=== PATIENT | male | born 1950 | race Caucasian/White ===

== ENCOUNTER 2017-05-27 16:14 | Emergency (ER) | payer OTHER, MEDICARE ==
--- NOTE | 2017-05-27 17:02 | EDM.PDOC ---
ED HPI GENERAL MEDICAL PROBLEM - General Chief Complaint: Lower Extremity Injury/Pain Stated Complaint: R HIP COMPLAINT Time Seen by Provider: 05/27/17 16:37 Source of Information: Reports: Patient History Limitations: Reports: No Limitations - History of Present Illness INITIAL COMMENTS - FREE TEXT/NARRATIVE: Patient is a 66-year-old male who presents to the ED complaining of right SI joint/right hip pain, and knee pain. Patient's underwent right hip replacement this past July by Dr. Perez orthopedic surgeon in [place]. States after surgery underwent physical therapy for 3 months. States he had pain to the right SI joint, right hip, and knee post surgery that improved with physical therapy. States over the past 3 months pain has slowly increased. He has been evaluated by Dr. Velázquez Orthopedic surgeon at [facility] here in [place] on 2 separate occasions. First occasion was approx 2 months ago when his tramadol was discontinued. He had been taking tramadol for quite some time post surgery. In addition he went back to physical therapy to which he states symptoms actually worsened. He was reevaluated by Dr. Velázquez one month ago with x-rays obtained with no concerning findings. Physical therapy believes that her something additional wrong. Dr. Velázquez has not mentioned this to the patient. Patient does have a follow-up appointment with Dr. Perez June 11. Patient states pain is worsened with palpation and movement. Patient does admit to sitting in his recliner quite a bit during the day. States he sleeps in this as well. When asking about his activity level he says he gets up and down and walks around his residence. Does not sound like patient exercises at all. He's had no recent fall. He has no additional complaints. Patient has been utilizing hydrocodone 5-325 intermittently for pain. States the hydrocodone came from his son who recently had hand surgery. States he has none left. Right Hip Pain Score (Numeric/FACES): 8 - Related Data Allergies Allergy/AdvReac Type Severity Reaction Status Date / Time No Known Allergies Allergy Verified 11/30/13 07:20 Home Meds: Home Meds Acetaminophen/HYDROcodone [Proctor 325-5 MG] 1 tab PO Q4HR PRN 05/27/17 [History] Diclofenac Sodium 2 gm TOP BID 05/27/17 [History] Furosemide 20 mg PO DAILY 05/27/17 [History] Losartan [Cozaar] 100 mg PO DAILY 05/27/17 [History] Omeprazole 20 mg PO DAILY PRN 05/27/17 [History] Prednisone [IMW: predniSONE] 40 mg PO WITHBREAKFAST #10 tab 05/27/17 [Rx] amLODIPine [Norvasc] 10 mg PO DAILY 05/27/17 [History] hydrOXYzine HCl [Atarax] 25 mg PO Q4H PRN 05/27/17 [History] traMADol [Ultram] 50 - 100 mg PO Q6H PRN 05/27/17 [History] traMADol [Ultram] 50 mg PO Q6H PRN #20 tablet 05/27/17 [Rx] Past Medical History HEENT History: Reports: Impaired Vision Other HEENT History: wears corrective lenses Cardiovascular History: Reports: Hypertension Gastrointestinal History: Reports: GERD Genitourinary History: Reports: Renal Calculus Musculoskeletal History: Reports: Back Pain, Chronic, Osteoarthritis, Other ( See Below) Other Musculoskeletal History: arthritis to right knee - Past Surgical History HEENT Surgical History: Reports: Cataract Surgery GI Surgical History: Reports: None Musculoskeletal Surgical History: Reports: Hip Replacement, Other (See Below) Other Musculoskeletal Surgeries/Procedures:: bilateral hip replacement Social & Family History - Tobacco Use Smoking Status *Q: Never Smoker Second Hand Smoke Exposure: No - Caffeine Use Caffeine Use: Reports: Coffee - Recreational Drug Use Recreational Drug Use: No Review of Systems - Review of Systems Review Of Systems: See Below Musculoskeletal: Reports: Leg Pain (Right lateral upper leg), Joint Pain (Right hip) Skin: Reports: No Symptoms Neurological: Reports: Difficulty Walking (Secondary to pain utilizes a cane.). Denies: Numbness, Tingling ED EXAM, GENERAL - Physical Exam Exam: See Below Exam Limited By: No Limitations General Appearance: Alert, WD/WN, No Apparent Distress Ears: Hearing Grossly Normal Nose: Normal Inspection Throat/Mouth: Normal Voice, No Airway Compromise Neck: Normal Inspection, Supple Respiratory/Chest: No Respiratory Distress, No Accessory Muscle Use Peripheral Pulses: 2+: Radial (R) Back Exam: Normal Inspection. No: Paraspinal Tenderness, Vertebral Tenderness Extremities: Normal Inspection, Normal Capillary Refill, Pedal Edema, Limited Range of Motion, Other (Pain along the right SI joint that extends to the lateral aspect of the right hip into the lateral last the right upper thigh. Pain is mild in nature. No ecchymosis, swelling, bony abnormalities present.) Neurological: Alert, Oriented, Normal Cognition, No Motor/Sensory Deficits, Other (Patient has no sciatica). No: Normal Gait Psychiatric: Normal Affect, Normal Mood Skin Exam: Warm, Dry, Intact, Normal Color Course - Vital Signs Last Recorded V/S: Last Vital Signs Temp 98.7 F 05/27/17 16:22 Pulse 104 H 05/27/17 16:22 Resp 18 05/27/17 16:22 BP 140/91 H 05/27/17 16:22 Pulse Ox 95 05/27/17 16:22 - Re-Assessments/Exams Free Text/Narrative Re-Assessment/Exam: Will obtain results of previous x-ray of the right hip approximately one month ago from [facility]. 05/27/17 17:09 x-ray of the pelvis with hip 2 views right obtain March 16, 2017 impression: No significant change since 12/01/2016. No acute abnormalities. Postoperative changes of the bilateral total hip arthroplasty. No radiographic evidence of loosening. Heterotropic ossification surrounding the right hip. Hypertrophic changes of the lower lumbar spine. At this point there is no additional testing required. He has appointment with orthopedic surgeon that performed the surgery in approximately 2 weeks. He will be seen Dr. Velázquez in the next week for reevaluation when available. We'll go ahead and start treating the patient for si joint dysfunction/sacroiliitis. Thus prescription for prednisone 40 mg every a.m. 5 days provided. Will also provide a prescription for tramadol. Departure - Departure Time of Disposition: 17:12 Disposition: Home, Self-Care 01 Condition: Good Clinical Impression: Status post right hip replacement, Sacroiliitis - Discharge Information Prescriptions: Prednisone [IMW: predniSONE] 40 mg PO WITHBREAKFAST #10 tab traMADol [Ultram] 50 mg PO Q6H PRN #20 tablet PRN Reason: Pain (Severe 7-10) Instructions: Hip Pain Referrals: David Velázquez DO [Primary Care Provider] - Forms: ED Department Discharge Additional Instructions: As discussed believe this is related to sacroiliitis which is inflammation SI joint. Treatment is naproxen 1-2 tabs twice a day for 7 days, Tylenol 650 mg every 6 hours as needed, and tramadol 50 mg every 6 hours as needed for severe pain. Limits your tramadol usage. Take prednisone 40 mg every a.m. for next 5 days. This will reduce any inflammation present to the joint. There is low probability that this may help due to the chronicity of your discomfort. In addition refrain from sitting for extended period of time. Utilize good posture during sitting, standing, moving, and sleeping. Really exercise with stretching/ strengthening. He did balanced diet and push the fluids. Utilize proper lifting techniques. Follow-up with orthopedic surgeon Dr. Velázquez or Chris for reevaluation and pain management. Suggest utilizing ice to affected area as needed. Refrain from heat. Return to the ED for any new or worsening symptoms.
== END 2017-05-27 17:30 | disposition home or self-care (01) ==
LOC: JD.ED 16:14
DX: M46.1 Sacroiliitis, not elsewhere classified (principal); I10 Essential (primary) hypertension; K21.9 Gastro-esophageal reflux disease without esophagitis; Z79.899 Other long term (current) drug therapy; Z96.641 Presence of right artificial hip joint
CPT/HCPCS: 99283

== ENCOUNTER 2018-01-08 06:26 | Day surgery (SDC) | payer OTHER, MEDICARE ==
[2018-01-08] MEDS ORDERED: Lactated Ringers 1,000 ML IV SCH (07:00)
[2018-01-08] MEDS ORDERED: Lidocaine 1%/Sod Bicarbonate in NS 8.4% 1 ML Syringe IDERM PRN (07:00)
[2018-01-08] MEDS ORDERED: Sodium Chloride 0.9% 10 ML Syringe FLUSH PRN (07:00)
[2018-01-08] MEDS ORDERED: fentaNYL 100 MCG/2 ML SDV ONE (07:05)
[2018-01-08] MEDS ORDERED: Propofol 200 MG/20 ML SDV ONE ×2 (07:05)
[2018-01-08] MEDS ORDERED: Lidocaine 1% 4 ML ONE (07:06)
--- NOTE | 2018-01-08 07:18 | PCM.PREANE ---
Preanesthetic Assessment - Procedure Proposed Procedure: Diagnostic colonoscopy - Anesthesia/Transfusion/Family Hx Anesthesia History: Prior Anesthesia Without Reaction Family History of Anesthesia Reaction: No Transfusion History: No Prior Transfusion(s) - Review of Systems General: No Symptoms Pulmonary: No Symptoms Cardiovascular: Other (HTN controlled with medications ) Gastrointestinal: Other (GERD) Neurological: No Symptoms Other: Reports: None - Physical Assessment NPO Status Date: 01/07/18 NPO Status Time: 21:00 O2 Sat by Pulse Oximetry: 93 Respiratory Rate: 20 Vital Signs: Last Vital Signs Temp 36.4 C 01/08/18 06:35 Pulse 90 01/08/18 06:35 Resp 20 01/08/18 06:35 BP 162/88 H 01/08/18 06:35 Pulse Ox 93 L 01/08/18 06:35 Height: 1.85 m Weight: 143.789 kg ASA Class: 2 Mental Status: Alert & Oriented x3 Airway Class: Mallampati = 2 Dentition: Reports: Dentures (upper and lower ) Thyro-Mental Finger Breadths: 3 Mouth Opening Finger Breadths: 3 ROM/Head Extension: Full Lungs: Clear to Auscultation, Normal Respiratory Effort Cardiovascular: Regular Rate, Regular Rhythm - Allergies Allergies/Adverse Reactions: Allergies Allergy/AdvReac Type Severity Reaction Status Date / Time No Known Allergies Allergy Verified 01/07/18 13:20 - Blood Blood Available: No Product(s) Available: None - Anesthesia Plan Pre-Op Medication Ordered: None - Acknowledgements Anesthesia Type Planned: MAC Pt an Appropriate Candidate for the Planned Anesthesia: Yes Alternatives and Risks of Anesthesia Discussed w Pt/Guardian: Yes Pt/Guardian Understands and Agrees with Anesthesia Plan: Yes PreAnesthesia Questionnaire HEENT History: Reports: Impaired Vision Other HEENT History: wears corrective lenses Cardiovascular History: Reports: Hypertension Respiratory History: Reports: None Gastrointestinal History: Reports: GERD Genitourinary History: Reports: Renal Calculus [employer] History: Reports: None Musculoskeletal History: Reports: Back Pain, Chronic, Osteoarthritis, Other ( See Below) Other Musculoskeletal History: arthritis to right knee Neurological History: Reports: None Psychiatric History: Reports: None Endocrine/Metabolic History: Reports: None Hematologic History: Reports: None Immunologic History: Reports: None Oncologic (Cancer) History: Reports: None Dermatologic History: Reports: None - Past Surgical History Head Surgeries/Procedures: Reports: None HEENT Surgical History: Reports: Cataract Surgery Cardiovascular Surgical History: Reports: None Respiratory Surgical History: Reports: None GI Surgical History: Reports: None Female Surgical History: Other Female Surgeries/Procedures: urethral stent Male Surgical History: Reports: Other (See Below) Endocrine Surgical History: Reports: None Neurological Surgical History: Reports: None Musculoskeletal Surgical History: Reports: Hip Replacement, Other (See Below) Other Musculoskeletal Surgeries/Procedures:: bilateral hip replacement Oncologic Surgical History: Reports: None Dermatological Surgical History: Reports: None - SUBSTANCE USE Smoking Status *Q: Never Smoker Tobacco Use Within Last Twelve Months: No Second Hand Smoke Exposure: No Recreational Drug Use History: No - HOME MEDS Home Medications: Home Meds Furosemide 20 mg PO DAILY 05/27/17 [History] Losartan [Cozaar] 100 mg PO DAILY 05/27/17 [History] Omeprazole 20 mg PO DAILY PRN 05/27/17 [History] amLODIPine [Norvasc] 10 mg PO DAILY 05/27/17 [History] Aspirin [Halfprin] 81 mg PO DAILY 01/07/18 [History] Multivitamin [Men's Multi-Vitamin] 1 tab PO DAILY 01/07/18 [History] - CURRENT (IN HOUSE) MEDS Current Meds: Current Medications Lactated Ringer's (Ringers, Lactated) 1,000 mls @ 125 mls/hr IV ASDIRECTED TAMMIE Last Admin: 01/08/18 06:45 Dose: 125 mls/hr Lidocaine/Sodium Bicarbonate (Buffered Lidocaine 1% In Ns 8.4%) 0.25 ml IDERM ONETIME PRN PRN Reason: Prior to IV Start Last Admin: 01/08/18 06:45 Dose: 0.25 ml Sodium Chloride (Saline Flush) 10 ml FLUSH ASDIRECTED PRN PRN Reason: Keep Vein Open Discontinued Medications Fentanyl (Sublimaze) Confirm Administered Dose 100 mcg .ROUTE .STK-MED ONE Stop: 01/08/18 07:06 Lidocaine HCl (Xylocaine-Mpf 1%) Confirm Administered Dose 4 mls @ as directed .ROUTE .STK-MED ONE Stop: 01/08/18 07:07 Propofol (Diprivan 20 Ml) Confirm Administered Dose 200 mg .ROUTE .STK-MED ONE Stop: 01/08/18 07:06 Propofol (Diprivan 20 Ml) Confirm Administered Dose 200 mg .ROUTE .[facility]-MED ONE Stop: 01/08/18 07:06
--- NOTE | 2018-01-08 07:44 | PCM.HP ---
H&P History of Present Illness - General Date of Service: 01/08/18 Source of Information: Patient History Limitations: Reports: No Limitations - History of Present Illness Initial Comments - Free Text/Narative: 67 year old male here today for diagnostic colonoscopy. He has had a recent bright red blood with hard bowel movement. He has had no proctodynia. He denies any family history of colon cancer. He has never had a colonoscopy. He is able to accomplish 4 METS of activity without chest pain or dyspnea. - Related Data Allergies/Adverse Reactions: Allergies Allergy/AdvReac Type Severity Reaction Status Date / Time No Known Allergies Allergy Verified 01/07/18 13:20 Home Medications: Home Meds Furosemide 20 mg PO DAILY 05/27/17 [History] Losartan [Cozaar] 100 mg PO DAILY 05/27/17 [History] Omeprazole 20 mg PO DAILY PRN 05/27/17 [History] amLODIPine [Norvasc] 10 mg PO DAILY 05/27/17 [History] Aspirin [Halfprin] 81 mg PO DAILY 01/07/18 [History] Multivitamin [Men's Multi-Vitamin] 1 tab PO DAILY 01/07/18 [History] Past Medical History HEENT History: Reports: Impaired Vision Other HEENT History: wears corrective lenses Cardiovascular History: Reports: Hypertension Respiratory History: Reports: None Gastrointestinal History: Reports: GERD Genitourinary History: Reports: Renal Calculus [employer] History: Reports: None Musculoskeletal History: Reports: Back Pain, Chronic, Osteoarthritis, Other ( See Below) Other Musculoskeletal History: arthritis to right knee Neurological History: Reports: None Psychiatric History: Reports: None Endocrine/Metabolic History: Reports: None Hematologic History: Reports: None Immunologic History: Reports: None Oncologic (Cancer) History: Reports: None Dermatologic History: Reports: None - Past Surgical History Head Surgeries/Procedures: Reports: None HEENT Surgical History: Reports: Cataract Surgery Cardiovascular Surgical History: Reports: None Respiratory Surgical History: Reports: None GI Surgical History: Reports: None Female Surgical History: Other Female Surgeries/Procedures: urethral stent Male Surgical History: Reports: Other (See Below) Endocrine Surgical History: Reports: None Neurological Surgical History: Reports: None Musculoskeletal Surgical History: Reports: Hip Replacement, Other (See Below) Other Musculoskeletal Surgeries/Procedures:: bilateral hip replacement Oncologic Surgical History: Reports: None Dermatological Surgical History: Reports: None Social & Family History - Tobacco Use Smoking Status *Q: Never Smoker Second Hand Smoke Exposure: No - Caffeine Use Caffeine Use: Reports: Coffee - Recreational Drug Use Recreational Drug Use: No H&P Review of Systems - Review of Systems: Review Of Systems: See Below General: Reports: No Symptoms Pulmonary: Reports: No Symptoms Cardiovascular: Reports: No Symptoms Gastrointestinal: Reports: Hematochezia Genitourinary: Reports: No Symptoms Skin: Reports: No Symptoms Exam - Exam Exam: See Below - Vital Signs Vital Signs: Last Vital Signs Temp 36.4 C 01/08/18 06:35 Pulse 90 01/08/18 06:35 Resp 20 01/08/18 07:19 BP 162/88 H 01/08/18 06:35 Pulse Ox 93 L 01/08/18 07:19 Weight: 143.789 kg - Exam General: Alert, Oriented Lungs: Clear to Auscultation, Normal Respiratory Effort Cardiovascular: Regular Rate, Regular Rhythm GI/Abdominal Exam: Normal Bowel Sounds, Soft - Problem List (1) Hematochezia SNOMED Code(s): 833828977 ICD Code: K92.1 - MELENA Status: Acute Current Visit: Yes Problem List Initiated/Reviewed/Updated: Yes Orders Last 24hrs: Active Orders 24 hr Category Date Time Status Peripheral IV Care [RC] . DIRECTED Care 01/08/18 07:00 Active Verify Patient Consent Obtain [RC] ASDIRECTED Care 01/08/18 07:00 Active Lactated Ringers [Ringers, Lactated] 1,000 ml Med 01/08/18 07:00 Active IV ASDIRECTED Lidocaine 1%/Sod Bicarbonate [Buffered Lidocaine 1% in Med 01/08/18 07:00 Active NS 8.4%] 0.25 ml IDERM ONETIME PRN Sodium Chloride 0.9% [Saline Flush] Med 01/08/18 07:00 Active 10 ml FLUSH ASDIRECTED PRN Medication Administration Instruction [OM.PC] Routine Oth 01/08/18 07:00 Ordered Peripheral IV Insertion Adult [OM.PC] Routine Oth 01/08/18 07:00 Ordered Medication Orders Lactated Ringer's (Ringers, Lactated) 1,000 mls @ 125 mls/hr IV ASDIRECTED TAMMIE Last Admin: 01/08/18 06:45 Dose: 125 mls/hr Lidocaine/Sodium Bicarbonate (Buffered Lidocaine 1% In Ns 8.4%) 0.25 ml IDERM ONETIME PRN PRN Reason: Prior to IV Start Last Admin: 01/08/18 06:45 Dose: 0.25 ml Sodium Chloride (Saline Flush) 10 ml FLUSH ASDIRECTED PRN PRN Reason: Keep Vein Open Assessment/Plan Comment:: 67 year old male with hematochezia, proceed with diagnostic colonoscopy to further evaluate source of hematochezia. Benefits/risks discussed.
--- NOTE | 2018-01-08 08:15 | PCM.OPNOTE ---
- General Post-Op/Procedure Note Date of Surgery/Procedure: 01/08/18 Operative Procedure(s): Colonoscopy Findings: Grade I internal hemorrhoids Pre Op Diagnosis: Hematochezia Post-Op Diagnosis: Grade I internal hemorrhoids Anesthesia Technique: MAC Primary Surgeon: Jin Fierro EBL in mLs: 0 Complications: None Condition: Good Free Text/Narrative:: After the patient gave verbal and written consent he was placed on blood pressure and pulse ox monitoring. He was given iv sedation which he tolerated well. The olympus colonoscope was inserted per rectum and advanced to the cecum and terminal ileum without difficulty. The ileocecal valve, terminal and appendiceal orfice were imaged documenting cecal intubation. The scope was slowly withdrawn. The prep was excellent, the views were excellent. The mucosa was carefully examined. The scope was retroflexed in the rectum and grade i internal hemorrhoids were noted. The scope was then removed. Next colonoscopy recommended in 10 years for screening purposes.
--- NOTE | 2018-01-08 08:18 | PCM48HPAN ---
Post Anesthesia Note - EVALUATION WITHIN 48HRS OF ANESTHETIC Vital Signs in Normal Range: Yes Patient Participated in Evaluation: Yes Respiratory Function Stable: Yes Airway Patent: Yes Cardiovascular Function Stable: Yes Hydration Status Stable: Yes Pain Control Satisfactory: Yes Nausea and Vomiting Control Satisfactory: Yes Mental Status Recovered: Yes Pulse Rate: 78 SaO2: 90 Resp Rate: 20 Temperature: 36.3 C Blood Pressure: 134/87
== END 2018-01-08 08:57 | disposition home or self-care (01) ==
LOC: JD.SDS 06:26
PROVIDERS: ATTEND Family Medicine
DX: K92.1 Melena (principal); K64.0 First degree hemorrhoids; I10 Essential (primary) hypertension; K21.9 Gastro-esophageal reflux disease without esophagitis; G89.29 Other chronic pain; M54.9 Dorsalgia, unspecified; M17.11 Unilateral primary osteoarthritis, right knee; Z79.82 Long term (current) use of aspirin; Z79.899 Other long term (current) drug therapy
CPT/HCPCS: 45378; J2001; J3010; J7120; J2704

== ENCOUNTER 2019-05-11 22:14 | Emergency (ER) | payer OTHER ==
[2019-05-11] MEDS ORDERED: Ondansetron 4 MG/2 ML SDV IVPUSH ONE (22:44)
[2019-05-11] MEDS ORDERED: Tamsulosin 0.4 MG Cap.ER PO ONE (22:44)
[2019-05-11] MEDS ORDERED: Ketorolac 30 MG/ML SDV IVPUSH STA (22:44)
[2019-05-11] MEDS ORDERED: HYDROmorphone 1 MG/ML Syringe IVPUSH ONE (22:44)
[2019-05-11] MEDS ORDERED: Sodium Chloride 0.9% 1,000 ML IV SCH (22:45)
--- NOTE | 2019-05-11 22:50 | EDM.PDOC ---
ED HPI GENERAL MEDICAL PROBLEM - General Chief Complaint: Flank Pain Stated Complaint: LOWER FLANK PAIN Time Seen by Provider: 05/11/19 22:32 Source of Information: Reports: Patient, Family () History Limitations: Reports: No Limitations - History of Present Illness INITIAL COMMENTS - FREE TEXT/NARRATIVE: Mr. Robins is a pleasant 68-year-old man with past history significant for a kidney stone "many years ago", who states that he presented at that time with hematuria only, no pain. He subsequently underwent a lithotripsy. The patient now presents to the ED stating that he developed sudden onset left lower flank pain around 20:30 this evening. The pain does not radiate. It is sharp in character. It is constant, and the patient has not identified any modifiers. He denies any urinary symptoms or gross hematuria. No prior similar symptoms. The patient did not take any vhqk-ujh-zoxanox or home remedies prior to coming to the ED. The patient's PCP is Dr. Jin Fierro. His Orthopedic Surgeon is Dr. Veto Hernandez. Left Flank Pain Score (Numeric/FACES): 10 - Related Data Allergies Allergy/AdvReac Type Severity Reaction Status Date / Time No Known Allergies Allergy Verified 05/11/19 22:27 Home Meds: Home Meds Furosemide 20 mg PO DAILY 05/27/17 [History] Losartan [Cozaar] 100 mg PO DAILY 05/27/17 [History] Omeprazole 20 mg PO DAILY PRN 05/27/17 [History] amLODIPine [Norvasc] 10 mg PO DAILY 05/27/17 [History] Aspirin [Halfprin] 81 mg PO DAILY 05/11/19 [History] Acetaminophen/HYDROcodone [[place] 325-5 MG] 1 - 2 tab PO Q6H PRN #20 tablet 05/12 [Rx] Ondansetron [Zofran ODT] 1 tab PO Q8H PRN #10 tab.dis 05/12/19 [Rx] Tamsulosin HCl [Flomax] 1 cap PO QAM PRN #7 cap.er.24h 05/12/19 [Rx] Past Medical History HEENT History: Reports: Impaired Vision Other HEENT History: wears corrective lenses Cardiovascular History: Reports: Hypertension Gastrointestinal History: Reports: GERD Genitourinary History: Reports: Renal Calculus Musculoskeletal History: Reports: Osteoarthritis Endocrine/Metabolic History: Reports: Obesity/BMI 30+ - Past Surgical History HEENT Surgical History: Reports: Cataract Surgery (bilateral) GI Surgical History: Reports: Colonoscopy Male Surgical History: Reports: Lithotripsy (ESWL) Musculoskeletal Surgical History: Reports: Hip Replacement (Rt x 3, Lt x 1) Social & Family History - Family History Family Medical History: Noncontributory - Tobacco Use Smoking Status *Q: Never Smoker - Caffeine Use Caffeine Use: Reports: Coffee - Alcohol Use Alcohol Use History: Yes Alcohol Use Frequency: Rarely - Recreational Drug Use Recreational Drug Use: No - Living Situation & Occupation Living situation: Reports: , with Spouse Occupation: Retired ED ROS GENERAL - Review of Systems Review Of Systems: ROS reveals no pertinent complaints other than HPI. ED EXAM, RENAL/ - Physical Exam Exam: See Below Exam Limited By: No Limitations General Appearance: Alert, WD/WN, Mild Distress (appears uncomfortable) Eye Exam: Bilateral Eye: EOMI, Normal Inspection Ears: Normal External Exam, Hearing Grossly Normal Nose: Normal Inspection Throat/Mouth: Normal Inspection, Normal Lips, Normal Voice, No Airway Compromise Head: Atraumatic, Normocephalic Neck: Normal Inspection, Full Range of Motion Respiratory/Chest: No Respiratory Distress, Lungs Clear, Normal Breath Sounds, No Accessory Muscle Use Cardiovascular: Normal Peripheral Pulses, Regular Rate, Rhythm, No Edema, No Gallop, No JVD, No Murmur, No Rub GI/Abdominal: Normal Bowel Sounds, Soft, Non-Tender, No Organomegaly, No Distention, No Abnormal Bruit, No Mass (Male) Exam: Deferred Rectal (Males) Exam: Deferred Back Exam: Normal Inspection, Full Range of Motion, Other (No tenderness to direct palpation of the area of pain at the lower left flank. No visible abnormality to the area, such as swelling, erythema, ecchymosis, or rash.). No : CVA Tenderness (L), CVA Tenderness (R) Extremities: Normal Inspection, Normal Range of Motion, No Pedal Edema, Normal Capillary Refill Neurological: Alert, Oriented, Normal Cognition, No Motor/Sensory Deficits Psychiatric: Normal Affect Skin Exam: Warm, Dry, Intact, Normal Color, No Rash Course - Vital Signs Last Recorded V/S: Last Vital Signs Temp 36.3 C 05/11/19 22:24 Pulse 80 05/11/19 22:24 Resp 20 05/11/19 22:24 BP 134/74 05/11/19 22:24 Pulse Ox 95 05/11/19 22:24 - Orders/Labs/Meds Orders: Active Orders 24 hr Category Date Time Status Abdomen Pelvis wo Cont [CT] Stat Exams 05/11/19 22:43 Taken Sodium Chloride 0.9% [Normal Saline] 1,000 ml Med 05/11/19 22:45 Active IV ASDIRECTED Medication Orders Sodium Chloride (Normal Saline) 1,000 mls @ 150 mls/hr IV ASDIRECTED TAMMIE Last Admin: 05/11/19 22:59 Dose: 150 mls/hr Labs: Laboratory Tests 05/12/19 Range/Units 00:47 Urine Color Dark yellow (Yellow) Urine Appearance Clear (Clear) Urine pH 6.0 (5.0-8.0) Ur Specific [place] 1.025 (1.005-1.030) Urine Protein Trace H (Negative) Urine Glucose (UA) Negative (Negative) Urine Ketones Negative (Negative) Urine Occult Blood 3+ H (Negative) Urine Nitrite Negative (Negative) Urine Bilirubin Negative (Negative) Urine Urobilinogen 0.2 (0.2-1.0) Ur Leukocyte Esterase Negative (Negative) Urine RBC >100 H (0-5) /hpf Urine WBC 0-5 (0-5) /hpf Ur Epithelial Cells 0-5 (0-5) /hpf Urine Bacteria Few (FEW) /hpf Urine Mucus Rare (FEW) /hpf Meds: Medications Generic Name Dose Route Start Last Admin Trade Name Freq PRN Reason Stop Dose Admin Sodium Chloride 1,000 mls @ 150 mls/hr 05/11/19 22:45 05/11/19 22:59 Normal Saline IV 150 mls/hr ASDIRECTED TAMMIE Administration Discontinued Medications Generic Name Dose Route Start Last Admin Trade Name Freq PRN Reason Stop Dose Admin Hydromorphone HCl 1 mg 05/11/19 22:44 05/11/19 23:01 Dilaudid IVPUSH 05/11/19 22:45 1 mg ONETIME ONE Administration Ketorolac Tromethamine 30 mg 05/11/19 22:44 05/11/19 23:00 Toradol IVPUSH 05/11/19 22:45 30 mg ONETIME STA Administration Ondansetron HCl 4 mg 05/11/19 22:44 05/11/19 22:59 Zofran IVPUSH 05/11/19 22:45 4 mg ONETIME ONE Administration Tamsulosin HCl 0.4 mg 05/11/19 22:44 05/11/19 23:03 Flomax PO 05/11/19 22:45 0.4 mg ONETIME ONE Administration - Re-Assessments/Exams Free Text/Narrative Re-Assessment/Exam: 05/11/19 22:45 The location of the patient's pain is lower than we would expect for a ureterolith, but the sudden onset, severity, and his history of a stone suggest that he is suffering from a left ureterolith. I have ordered a CT of the abdomen and pelvis without contrast, along with a U/A, to evaluate. In the meantime, the patient will receive some Dilaudid, Toradol, Flomax, Zofran, and IV fluid. 05/12/19 00:29 CT of the abdomen and pelvis without contrast is read by Nadia as "There is an obstructing 5 mm calcification at the left ureteropelvic junction." The patient has not yet provided a urine sample. I need to be sure that he does not have a UTI before I can discharge him. 05/12/19 01:54 The patient's urinalysis is remarkable for 3+ occult blood and >100 RBCs, but is otherwise unremarkable. There is no suggestion of a UTI. I will discharge the patient home with prescriptions for [place], Flomax, and Zofran. He should stay adequately hydrated and strain all of his urine. I will refer him to a Urologist; the patient prefers [facility]. Departure - Departure Time of Disposition: 01:56 Disposition: Home, Self-Care 01 Condition: Good Clinical Impression: Ureterolithiasis - Discharge Information *PRESCRIPTION DRUG MONITORING PROGRAM REVIEWED*: Not Applicable *COPY OF PRESCRIPTION DRUG MONITORING REPORT IN PATIENT JC: Not Applicable Prescriptions: Acetaminophen/HYDROcodone [[place] 325-5 MG] 1 - 2 tab PO Q6H PRN #20 tablet PRN Reason: Pain (Severe 7-10) Ondansetron [Zofran ODT] 1 tab PO Q8H PRN #10 tab.dis PRN Reason: Nausea/Vomiting Tamsulosin HCl [Flomax] 1 cap PO QAM PRN #7 cap.er.24h PRN Reason: Pain Referrals: Jin Fierro MD [Primary Care Provider] - Berenice Person MD [Ordering Only Provider] - Veto Hernandez MD [Physician] - Forms: ED Department Discharge Additional Instructions: You were seen in the emergency room for sudden onset lower left flank pain. Workup in the ER included a urinalysis and a CT scan of your abdomen and pelvis without contrast. The CT scan found that you have a 5 mm stone at your ureteropelvic junction in your left ureter. This is the cause of your pain. Your urinalysis was unremarkable. You do not have a UTI. We recommend that you take uqbo-[id number] ibuprofen, 3 tablets (600 mg) every 8 hours, with food, [id number]. You have been prescribed the narcotic pain reliever [place], the anti-spasm medicine Flomax, and the antinausea medicine Zofran. Take 1 to 2 tablets of [place] up to every 6 hours, as needed for pain not relieved by ibuprofen. If you take [place], do not drive for 12 hours after taking it. [place] may cause constipation, so consider taking a stool softener. Take one tablet of Flomax every morning, starting morning, 05/12/2019, as prescribed. Dissolve one tablet of Zofran on your tongue up to every 8 hours, as needed for nausea/vomiting. Stay adequately hydrated. Strain all of your urine. If you capture the stone, take it to your doctor for analysis. If you continue to have pain after one week, please follow-up with the Urologist Dr. Berenice Person, in [place]. If any other problems, please do not hesitate to return to the ER. - My Orders Last 24 Hours: My Active Orders 05/11/19 22:43 Abdomen Pelvis wo Cont [CT] Stat 05/11/19 22:45 Sodium Chloride 0.9% [Normal Saline] 1,000 ml IV ASDIRECTED - Assessment/Plan Last 24 Hours: My Active Orders 05/11/19 22:43 Abdomen Pelvis wo Cont [CT] Stat 05/11/19 22:45 Sodium Chloride 0.9% [Normal Saline] 1,000 ml IV ASDIRECTED
--- NOTE | 2019-05-12 07:12 | CT ---
CT abdomen and pelvis Technique: Multiple axial sections were obtained from above the dome of the diaphragm inferiorly through the pubic symphysis. Intravenous and oral contrast not utilized. Study has been performed as a ureteral stone protocol. Comparison: No prior CT abdomen or pelvis study is available. Findings: 7 mm calcification is identified located within the left UPJ. This causes proximal hydronephrosis. Other nonobstructing calculi are seen within both kidneys. Cyst noted within the right kidney measuring 3.0 cm in size. Visualized lung bases show nothing acute. Noncontrast appearance of the liver shows no focal parenchymal abnormality. Spleen appears within normal limits. Small nodule is noted within the left adrenal gland measuring 1.5 cm. Adrenal glands are otherwise unremarkable. Pancreas is normal in appearance. Gallbladder contains no calcified gallstones. Aorta shows no aneurysm. No retroperitoneal adenopathy or mesenteric abnormalities are seen. Appendix felt to be visualized and is normal in size. Inferior portions of the pelvis are obscured from bilateral hip prosthesis. No discrete pelvic mass or adenopathy is noted. No free fluid or inflammatory change is seen. Bone window settings were reviewed which show scattered degenerative change within the spine with mild scoliosis. Impression: 1. Obstructing stone located at the left UPJ measuring approximately 7 mm. Other nonobstructing calculi are seen within both kidneys. Cyst which is felt to be incidental is noted within the right kidney. 2. Small left adrenal nodule which is most likely incidental. 3. Other findings also felt to be incidental as noted above. Diagnostic code #3 I agree with preliminary report from [facility], finalized on 05/12/19, 1:02 AM Central Time
== END 2019-05-12 02:09 | disposition home or self-care (01) ==
LOC: JD.ED 22:14
DX: N13.2 Hydronephrosis with renal and ureteral calculous obstruction (principal); I10 Essential (primary) hypertension; K21.9 Gastro-esophageal reflux disease without esophagitis; E66.9 Obesity, unspecified; Z68.41 Body mass index [BMI] 40.0-44.9, adult; Z79.82 Long term (current) use of aspirin; Z79.899 Other long term (current) drug therapy
CPT/HCPCS: 74176; 81001; 96361; 96374; 96375; 99284; A9270; J1170; J1885; J2405; J7040

== ENCOUNTER 2020-07-19 07:02 | Day surgery (SDC) | payer OTHER ==
[~2020-07-19 07:02] MED LIST: Dexamethasone 4 MG/ML 5 ML MDV ONE; EPINEPHrine 1 MG/ML 30 ML MDV IRR SCH; Lidocaine 1% 6 ML ONE; Lidocaine 1%/Sod Bicarbonate in NS 8.4% 1 ML Syringe IDERM PRN; Midazolam 1 MG/ML 2 ML SDV ONE; Propofol 200 MG/20 ML SDV ONE; Ropivacaine 0.5% 5 MG/ML 30 ML SDV ONE; Sodium Chloride 0.9% 10 ML Syringe FLUSH PRN; Succinylcholine/Sod PF 100 MG/5 ML SYRINGE IV ONE; ceFAZolin 1 GM Vial ONE; fentaNYL 100 MCG/2 ML SDV ONE
--- NOTE | 2020-07-19 07:13 | PCM.PREANE ---
Preanesthetic Assessment - Procedure Proposed Procedure: Rt shoulder arthroscopy - Anesthesia/Transfusion/Family Hx Anesthesia History: Prior Anesthesia Without Reaction Transfusion History: No Prior Transfusion(s) - Review of Systems General: No Symptoms Pulmonary: No Symptoms Cardiovascular: No Symptoms Gastrointestinal: No Symptoms Neurological: No Symptoms Other: Reports: None - Physical Assessment NPO Status Date: 07/18/20 NPO Status Time: 18:00 Vital Signs: 159/75, SpO2 RA 94% ASA Class: 3 Mental Status: Alert & Oriented x3 Airway Class: Mallampati = 3 Dentition: Reports: Dentures, Edentulous Thyro-Mental Finger Breadths: 3 Mouth Opening Finger Breadths: 3 ROM/Head Extension: Full Lungs: Clear to Auscultation, Normal Respiratory Effort - Lab Values: Laboratory Last Values MRSA (PCR) Negative 07/11/20 09:39 - Allergies Allergies/Adverse Reactions: Allergies Allergy/AdvReac Type Severity Reaction Status Date / Time No Known Allergies Allergy Verified 07/18/20 14:58 - Acknowledgements Anesthesia Type Planned: General Anesthesia, Regional Block (Rt interscalene) Pt an Appropriate Candidate for the Planned Anesthesia: Yes Alternatives and Risks of Anesthesia Discussed w Pt/Guardian: Yes Pt/Guardian Understands and Agrees with Anesthesia Plan: Yes PreAnesthesia Questionnaire HEENT History: Reports: Impaired Vision Other HEENT History: wears corrective lenses Cardiovascular History: Reports: Hypertension Respiratory History: Reports: Other (See Below) Other Respiratory History: cough Gastrointestinal History: Reports: GERD, Other (See Below) Other Gastrointestinal History: hematochezia, hemorrhoids Genitourinary History: Reports: Renal Calculus, Other (See Below) Other Genitourinary History: uretic stone, lithotripsy, left uretoscopy with stent [employer] History: Reports: None Musculoskeletal History: Reports: Arthritis, Osteoarthritis Other Musculoskeletal History: right hip pain, SI joint pain Neurological History: Reports: None Psychiatric History: Reports: None Endocrine/Metabolic History: Reports: Hyperparathyroidism, Hypothyroidism, Obesity/BMI 30+ (Morbid obesity), Other (See Below) Other Endocrine/Metabolic History: thyroid nodule, hyperparathyroidism Hematologic History: Reports: None Immunologic History: Reports: None Oncologic (Cancer) History: Reports: None Dermatologic History: Reports: None - Infectious Disease History Infectious Disease History: Reports: None - Past Surgical History Head Surgeries/Procedures: Reports: None HEENT Surgical History: Reports: Cataract Surgery Cardiovascular Surgical History: Reports: None Respiratory Surgical History: Reports: None GI Surgical History: Reports: Colonoscopy Female Surgical History: Reports: None Other Female Surgeries/Procedures: urethral stent Male Surgical History: Reports: Lithotripsy (ESWL) Endocrine Surgical History: Reports: Parathyroidectomy Neurological Surgical History: Reports: None Musculoskeletal Surgical History: Reports: Hip Replacement Other Musculoskeletal Surgeries/Procedures:: bilateral hip replacement Oncologic Surgical History: Reports: None Dermatological Surgical History: Reports: None - SUBSTANCE USE Tobacco Use Status *Q: Never Tobacco User Recreational Drug Use History: No - HOME MEDS Home Medications: Home Meds Furosemide 20 mg PO DAILY 05/27/17 [History] amLODIPine [Norvasc] 10 mg PO DAILY 05/27/17 [History] Aspirin [Halfprin] 81 mg PO DAILY 05/11/19 [History] Benzonatate [Tessalon [place]] 200 mg PO TID PRN 07/18/20 [History] Calcium Carbonate/Vitamin D3 [[place] 500+D] 1 tab PO DAILY 07/18/20 [History] Levothyroxine 75 mcg PO DAILY 07/18/20 [History] Multivitamin 1 tab PO DAILY 07/18/20 [History] Pantoprazole Sodium [Protonix] 20 mg PO DAILY 07/18/20 [History] Valsartan 80 mg PO DAILY 07/18/20 [History] Acetaminophen/HYDROcodone [[place] 325-5 MG] 1 - 2 tab PO Q6H PRN #30 tablet 07/19/20 [Rx] Cyclobenzaprine [Flexeril] 10 mg PO BID PRN #20 tab 07/19/20 [Rx] - CURRENT (IN HOUSE) MEDS Current Meds: Current Medications Epinephrine HCl (Adrenalin) 3 mg IRR ONETIME TAMMIE Lactated Ringer's (Ringers, Lactated) 1,000 mls @ 125 mls/hr IV ASDIRECTED TAMMIE Stop: 07/19/20 23:00 Lidocaine/Sodium Bicarbonate (Buffered Lidocaine 1% In Ns 8.4%) 0.25 ml IDERM ONETIME PRN PRN Reason: Prior to IV Start Stop: 07/19/20 18:00 Sodium Chloride (Saline Flush) 10 ml FLUSH ASDIRECTED PRN PRN Reason: Keep Vein Open Stop: 12/03/20 18:00 Discontinued Medications Cefazolin Sodium (Ancef) Confirm Administered Dose 2 gm .ROUTE .STK-MED ONE Stop: 07/19/20 06:48 Dexamethasone (Dexamethasone) Confirm Administered Dose 20 mg .ROUTE .STK-MED ONE Stop: 07/19/20 06:40 Fentanyl (Sublimaze) Confirm Administered Dose 100 mcg .ROUTE .STK-MED ONE Stop: 07/19/20 06:44 Lidocaine HCl (Xylocaine-Mpf 1%) Confirm Administered Dose 6 mls @ as directed .ROUTE .STK-MED ONE Stop: 07/19/20 06:40 Midazolam HCl (Versed 1 Mg/Ml) Confirm Administered Dose 4 mg .ROUTE .STK-MED ONE Stop: 07/19/20 06:44 Propofol (Diprivan 20 Ml) Confirm Administered Dose 200 mg .ROUTE .STK-MED ONE Stop: 07/19/20 06:48 Ropivacaine (Naropin 0.5%) Confirm Administered Dose 30 ml .ROUTE .STK-MED ONE Stop: 07/19/20 06:36
[2020-07-19] MEDS: Lactated Ringers 1,000 ML IV SCH ×2 (07:20→11:08)
[2020-07-19] MEDS ORDERED: ceFAZolin 1 GM Vial ONE (07:57)
[2020-07-19] MEDS ORDERED: Propofol 200 MG/20 ML SDV ONE (08:20)
[2020-07-19] MEDS ORDERED: Lactated Ringers 1,000 ML ONE (08:55)
[2020-07-19] MEDS ORDERED: Succinylcholine/Sod PF 100 MG/5 ML SYRINGE IV ONE (09:00)
[2020-07-19] MEDS ORDERED: Ondansetron 4 MG/2 ML SDV ONE (09:06)
--- NOTE | 2020-07-19 09:37 | PCM.PRNOTE ---
- Free Text/Narrative Note: Postoperative regional pain control requested by surgeon. Pre-op Dx: Right shoulder rotator cuff tear Surgical procedure: Right shoulder arhroscopy with rotator cuff repair Procedure: Right Interscalene block with U/S guidance Requesting physician: Dr. Veto Cabello Risks and benefits discussed with the patient preoperatively including infection, bleeding, incomplete or failed block, possible nerve damage, local anesthetic toxicity. Chart reviewed, VS stable. Permit signed. Patient in preoperative room 3, stable , alert and awake. Time out performed at 07:37. Oxygen 3L via NC. Right side of the neck was prepped with Chloraprep x 1 and allowed to dry. Midazolam IV 4 mg given incrementally. Under aseptic technique, the brachial plexus was identified under ultrasound prior to needle insertion. Local infiltration with 2 mls of 1% Lidocaine. 2" Stimuplex needle #22 G was inserted under US guidance. Neuromuscular response of biceps contraction and forearm twitching elicited at 0.6 mA. Under direct visualization of needle tip the injection of 0.5% Ropivacaine (25 ml) with 1:200k epinephrine 8 mg of Dexamethasone total of 27 mls in divided doses, maintaining negative aspiration was completed without problems. No local anesthetic toxicity was noted. Patient is awake, stable and tolerated the procedure well. Start: 07:37 End: 07:42 Please see the attached U/S image
--- NOTE | 2020-07-19 10:39 | PCM.POSTAN ---
POST ANESTHESIA ASSESSMENT - MENTAL STATUS Mental Status: Somnolent - VITAL SIGNS Vital Signs: Last Vital Signs Temp 97.3 F 07/19/20 10:30 Pulse 73 07/19/20 10:30 Resp 26 H 07/19/20 10:30 BP 91/48 L 07/19/20 10:30 Pulse Ox 92 L 07/19/20 10:30 - RESPIRATORY Respiratory Status: Respiratory Rate WNL, Airway Patent, O2 Saturation Stable (within preop baseline, deep breathing and coughing encouraged), Supplemental Ox ygen - CARDIOVASCULAR CV Status: Pulse Rate WNL, Blood Pressure Stable - GASTROINTESTINAL GI Status: No Symptoms - PAIN Pain Score: 0 (post ISB) - POST OP HYDRATION Hydration Status: Adequate & Stable
--- NOTE | 2020-07-19 13:04 | PCM48HPAN ---
Post Anesthesia Note - EVALUATION WITHIN 48HRS OF ANESTHETIC Vital Signs in Normal Range: Yes Patient Participated in Evaluation: Yes Airway Patent: Yes Cardiovascular Function Stable: Yes Hydration Status Stable: Yes Pain Control Satisfactory: Yes Nausea and Vomiting Control Satisfactory: Yes Mental Status Recovered: Yes Vital Signs: Last Vital Signs Temp 97.7 F 07/19/20 12:00 Pulse 71 07/19/20 12:00 Resp 20 07/19/20 12:00 BP 99/57 L 07/19/20 12:00 Pulse Ox 93 L 07/19/20 12:00 - COMMENTS/OBSERVATIONS Free Text/Narrative:: the post anesthesia note has been completed by Booker Almaraz CRNA at a later time
--- NOTE | 2020-07-19 13:59 | PCM48HPAN ---
Post Anesthesia Note - EVALUATION WITHIN 48HRS OF ANESTHETIC Vital Signs in Normal Range: Yes Patient Participated in Evaluation: Yes Respiratory Function Stable: Yes (O2 sating right at 90% up and down) Airway Patent: Yes Cardiovascular Function Stable: Yes Hydration Status Stable: Yes Pain Control Satisfactory: Yes Nausea and Vomiting Control Satisfactory: Yes Mental Status Recovered: Yes Vital Signs: Last Vital Signs Temp 36.1 C 07/19/20 13:00 Pulse 75 07/19/20 13:30 Resp 16 07/19/20 13:30 BP 132/71 07/19/20 13:30 Pulse Ox 90 L 07/19/20 13:30 - COMMENTS/OBSERVATIONS Free Text/Narrative:: Encouraged pt to cough and deep breath. Patient is hanging out at a sat of 90% both with and with out O2. Will dip down to 88% but comes right back up. Ok to be discharged.
--- NOTE | 2020-08-03 08:13 | PCM.OPNOTE ---
- General Post-Op/Procedure Note Date of Surgery/Procedure: 07/19/20 Operative Procedure(s): right shoulder video arthroscopy with rotator cuff repair, subacromial decompression, and extensive debridement with biceps tenotomy Pre Op Diagnosis: right shoulder rotator cuff tear with impingement and biceps tendinopathy Post-Op Diagnosis: Same Anesthesia Technique: General ET Tube, Regional Block Primary Surgeon: Veto Hernandez Anesthesia Provider: Angel Patton Alteration Tailor: Jazzmine Nassar EBToney in mLs: 5 Complications: None Condition: Good
--- NOTE | 2020-08-03 11:01 | OR ---
DATE OF OPERATION: 07/19/2020 SURGEON: Veto Hernandez MD OPERATION PERFORMED: Right Arthroscopic rotator cuff repair, subacromial decompression, extensive debridement with biceps tenotomy. PREOPERATIVE DIAGNOSIS: Right Rotator cuff tear with impingement and biceps tendinopathy. POSTOPERATIVE DIAGNOSIS: Right Rotator cuff tear with impingement and biceps tendinopathy. ANESTHESIA: General with interscalene block. COMPLICATIONS: None. CONDITION: Stable. DESCRIPTION OF PROCEDURE: The patient was identified in the preop holding area. The operative site was marked and identified and the patient was brought to the operative theater where adequate anesthesia, the patient was placed in the lazy lateral decubitus position it was significantly difficult secondary to his body habitus and BMI. Right shoulder was sterilely prepped and draped in usual sterile fashion. OR time-out was performed. The patient received 3 grams IV Ancef and 15 pounds of traction was applied to the right upper extremity. A standard posterior incision was made. A scope trocar was introduced to the glenohumeral joint an anterior portal was created from an outside-in technique. Portals was again difficult secondary to his BMI and body habitus. At this time, the patient was noted to have significant fraying of the biceps tendon. A biceps tenotomy was performed. An extensive debridement was done of the synovitis as well as fraying of the labrum. Subscapularis tendon was intact. The patient was noted to have a full-thickness tear of the supraspinatus tendon. Attention was turned to the subacromial space and a lateral portal was created. The patient was noted to have significant bursal tissue and extensive debridement was done of the subacromial space. The patient was noted to have type 2 acromion as well and acromioplasty as well as subacromial decompression were completed to the smooth_ posterior rim. Rotator cuff tear was identified. A good bony bleeding bed was created on the greater tuberosity. Two Arthrex Medial-Row All-Suture anchors were placed. 12 limbs of sutures were placed from anterior to posterior in a color coordinated fashion. At this time after it was found to have good compression and purchase with all 12 limbs of suture, 2 [place] lateral anchors were placed, 6 limbs anterior and 1 posterior bringing 6 limbs out anterior and 6 limbs out posterior and tensioned in across the tear site. At this time, the suture limbs were cut. Pictures were taken. There was no other significant pathology. Excess saline was drained from the shoulder. 3-0 nylon was used for closure of the skin. Sterile soft dressing as well as a pillow sling was applied. This procedure was much more difficult due to the patient's significant BMI and body habitus and a normal shoulder arthroscopy. ESTIMATED BLOOD LOSS: MMODAL /[id number]
== END 2020-07-19 14:54 | disposition home or self-care (01) ==
LOC: JD.SDS 07:02
PROVIDERS: ATTEND Orthopaedic Surgery
DX: M75.101 Unspecified rotator cuff tear or rupture of right shoulder, not specified as traumatic (principal); M25.811 Other specified joint disorders, right shoulder; M75.51 Bursitis of right shoulder; I10 Essential (primary) hypertension; E05.90 Thyrotoxicosis, unspecified without thyrotoxic crisis or storm; K21.9 Gastro-esophageal reflux disease without esophagitis; E03.9 Hypothyroidism, unspecified; E66.01 Morbid (severe) obesity due to excess calories; Z79.899 Other long term (current) drug therapy; Z98.890 Other specified postprocedural states; Z79.82 Long term (current) use of aspirin
CPT/HCPCS: 01638; 64415; 87641; C1713; J0171; J0330; J0690; J1100; J2001; J2250; J2370; J2405; J2704; J2795; J3010; J7120

== ENCOUNTER → 2022-02-06 | Day surgery (SDC) | payer MEDICARE ==
[2022-02-06] MEDS: Brimonidine 0.2% Ophth Soln 5 ML Bottle EYERT SCH ×2 (16:52→17:30)
[2022-02-06] MEDS: Phenylephrine 2.5% Ophth Soln 2 ML Bot EYERT SCH ×2 (16:57→17:02)
[2022-02-06] MEDS: Tropicamide 1% Ophth Soln 15 ML Bottle EYERT SCH ×2 (17:00→17:05)
== END ==
LOC: JD.SDS 16:54
PROVIDERS: ATTEND Ophthalmology
DX: H26.491 Other secondary cataract, right eye (principal); I10 Essential (primary) hypertension; H35.373 Puckering of macula, bilateral

== ENCOUNTER 2025-07-14 13:47 | Emergency (ER) | payer MEDICARE | END 2025-07-14 18:00 | disposition home or self-care (01) | LOC: JD.ED 13:47 | DX: S82.431A Displaced oblique fracture of shaft of right fibula, initial encounter for closed fracture (principal); I10 Essential (primary) hypertension; K21.9 Gastro-esophageal reflux disease without esophagitis; E03.9 Hypothyroidism, unspecified; Z79.899 Other long term (current) drug therapy; Z79.82 Long term (current) use of aspirin; Z79.890 Hormone replacement therapy; W18.39XA Other fall on same level, initial encounter; Y93.89 Activity, other specified | CPT/HCPCS: 27788; 73610-26-RT; 73610-RT; 73620-26-RT; 73620-RT; 99283-25 ==